=== PATIENT | male | born 1975 | race Caucasian/White ===

== ENCOUNTER 2023-01-11 07:28 | Emergency (ER) | payer SELFPAY ==
[~2023-01-11] VITALS: Ht 190.5 cm; Wt 99.8 kg
[2023-01-11 07:57] VITALS: BP 112/66; TEMP 98.1; O2SAT 96
== END 2023-01-11 07:57 | disposition home or self-care (01) ==
LOC: ER 07:36
DX: G89.29 Other chronic pain (principal); M54.9 Dorsalgia, unspecified; Z88.8 Allergy status to other drugs, medicaments and biological substances; Z60.2 Problems related to living alone

== ENCOUNTER 2023-07-13 13:13 | Emergency (ER) | payer SELFPAY ==
[~2023-07-13] VITALS: Ht 188 cm; Wt 134.7 kg
[2023-07-13 13:54] VITALS: BP 136/85; TEMP 98.1; O2SAT 100
== END 2023-07-13 13:55 | disposition home or self-care (01) ==
LOC: ER 13:16
DX: G89.29 Other chronic pain (principal); M54.50 Low back pain, unspecified; Z88.8 Allergy status to other drugs, medicaments and biological substances; Z60.2 Problems related to living alone

== ENCOUNTER 2023-07-24 23:01 | Emergency (ER) | payer SELFPAY ==
[~2023-07-24] VITALS: Ht 185.4 cm; Wt 113.4 kg
[2023-07-24 23:12] VITALS: BP 110/85; O2SAT 96
== END 2023-07-24 23:16 | disposition home or self-care (01) ==
LOC: ER 23:04
DX: Z71.1 Person with feared health complaint in whom no diagnosis is made (principal); Z88.8 Allergy status to other drugs, medicaments and biological substances; Z60.2 Problems related to living alone

== ENCOUNTER 2024-04-30 19:10 | Emergency (ER) | payer MEDICAID ==
[~2024-04-30] VITALS: Ht 188 cm; Wt 136.1 kg
[2024-04-30] MEDS ORDERED: METHOCARBAMOL (500MG) 500 MG TABLET ONE (19:39)
[2024-04-30] MEDS ORDERED: HYDROCODONE/APAP 5/325MG TABLET ONE (19:39)
[2024-04-30] MEDS: METHOCARBAMOL (750MG) 750 MG TABLET PO SCH (19:40)
[2024-04-30] MEDS: HYDROCODONE/APAP 5/325MG TABLET PO ONE (19:40)
[2024-04-30] MEDS ORDERED: METH-647 PO (20:36)
[2024-04-30 20:58] VITALS: BP 137/64; TEMP 98; O2SAT 98
== END 2024-04-30 20:59 | disposition home or self-care (01) ==
LOC: ER 19:19
DX: S16.1XXA Strain of muscle, fascia and tendon at neck level, initial encounter (principal); S09.8XXA Other specified injuries of head, initial encounter; R51.9 Headache, unspecified; Z88.5 Allergy status to narcotic agent; W22.8XXA Striking against or struck by other objects, initial encounter; Y93.89 Activity, other specified; Y92.89 Other specified places as the place of occurrence of the external cause; Y99.8 Other external cause status
CPT/HCPCS: 70450-TC; 72125-TC